=== PATIENT | female | born 1990 | race Caucasian/White ===

== ENCOUNTER 2018-01-01 21:38 | Emergency (ER) | payer MEDICAID ==
[2018-01-01] MEDS ORDERED: METAL LOCK LOOP XX (23:36)
== END 2018-01-02 00:52 | disposition left against medical advice (07) ==
LOC: M ED 01-02 00:52
DX: Z53.21 Procedure and treatment not carried out due to patient leaving prior to being seen by health care provider (principal)

== ENCOUNTER → 2019-06-30 | Outpatient (REF) | payer OTHER ==
[~2019-06-30] MED LIST: ADDE30CA3; GABA-845; LAMI1TAB7
== END ==
LOC: M LAB REF 10:51
PROVIDERS: ATTEND Ophthalmology
DX: H10.9 Unspecified conjunctivitis (principal)

== ENCOUNTER 2020-10-08 18:39 | Emergency (ER) | payer OTHER ==
[~2020-10-08] VITALS: Ht 165.1 cm; Wt 96.6 kg
[2020-10-08 19:21] LABS: BASO % 0.3 % (0.0-1.0); EOS # 0.1 10^3/uL (0.0-0.5); EOS % 1.3 % (0.0-3.0); HEMATOCRIT 43.4 % (36.0-47.0); HEMOGLOBIN 13.1 g/dl (12.0-15.5); LYMPH # 3.1 10^3/uL (1.5-5.0); LYMPH % 29.5 % (24.0-44.0); MEAN CORPUSCULAR HEMOGLOBIN 26.2 pg (27.0-33.0); MEAN CORPUSCULAR HGB CONC 30.2 g/dl (32.0-36.5); MEAN CORPUSCULAR VOLUME 86.8 fl (80.0-96.0); MONO # 0.8 10^3/uL (0.0-0.8); MONO % 7.8 % (0.0-5.0); NEUTROPHILS # 6.3 10^3/uL (1.5-8.5); NEUTROPHILS % 60.7 % (36.0-66.0); PLATELET COUNT, AUTOMATED 289 10^3/uL (150-450); WHITE BLOOD COUNT 10.4 10^3/uL (4.0-10.0)
[2020-10-08 19:55] LABS: BLOOD UREA NITROGEN 7 MG/DL (7-18); CALCIUM LEVEL 9.1 MG/DL (8.5-10.1); CARBON DIOXIDE LEVEL 33 MEQ/L (21-32); CHLORIDE LEVEL 106 MEQ/L (98-107); GLOMERULAR FILTRATION RATE > 60.0 (>60); GLUCOSE, FASTING 103 MG/DL (70-100); HCG, SERUM QUANTITATIVE 685 MIU/ML; POTASSIUM SERUM 4.1 MEQ/L (3.5-5.1); SODIUM LEVEL 142 MEQ/L (136-145)
--- NOTE | 2020-10-08 21:15 | REPVR ---
PROCEDURE INFORMATION: Exam: US First Trimester, Transabdominal and US , Transvaginal Exam date and time: 10/08/2020 8:53 PM Age: 30 years old Clinical indication: Lmp or gestational age (in weeks): 07/17/20; Antepartum complications; Bleeding; ; Additional info: Vaginal bleeding TECHNIQUE: Imaging protocol: Real-time transabdominal obstetrical ultrasound of the maternal pelvis and a first trimester , less than 14 weeks 0 days, with image documentation. Transvaginal imaging was used for better evaluation of the fetus, adnexa, and/or cervix. COMPARISON: No relevant prior studies available. FINDINGS: BIOMETRY: Mean sac diameter: What appears to be a gestational sac within the uterus measures 1.2 x 0.8 by 0.97 cm for a mean sac diameter 0.98 cm for menstrual age of 5 weeks and 5 days. Echoes are noted within the gestational sac. No definite pole. Possible yolk sac noted. Complex masslike area noted adjacent to the gestational sac within the endometrial canal measures 3.1 x 2 point 0 x 3.3 cm. No cardiac activity. MATERNAL: Uterus: Transabdominally, the uterus measures 10.9 x 4.5 by 7.1 cm. Complex fluid collection is noted within the uterus. There is suboptimal visualization of the uterus and ovaries on the transabdominal portion of the study due to incomplete bladder distension. Endovaginally, the uterus measures 9.8 x 5.5 by 6.8 cm. The endometrial stripe is thickened and heterogeneous in appearance with areas of increased and decreased echotexture noted within. No areas of abnormal vascularity noted within the endometrial canal on color Doppler examination. Cervix: Unremarkable. Right adnexa: Transabdominally, the right ovary measures 2.4 x 1.7 x 2.2 centimetres. Endovaginally, the right ovary measures 3.5 x 2.2 x 2.1 cm. Subcentimeter follicle seen in the right ovary. Arterial blood flow seen in the right ovary on pulse Doppler examination. Left adnexa: Transabdominally, the left ovary measures 3.1 x 2.4 x 2.5 cm. Endovaginally, the left ovary measures 2.4 x 3.6 x 1.9 cm and contains several subcentimeter follicles. Arterial blood flow demonstrated in the left ovary on color Doppler examination. Intraperitoneal space: No intraperitoneal free fluid. IMPRESSION: 1. Gestational sac within the uterus with estimated menstrual age 5 weeks and 5 days. Complex echoes noted within the sac and no definite pole. Serial beta hCG measurement follow-up ultrasound recommended to confirm the presence of a live . 2. Large subchorionic hemorrhage Electronically signed by: Dionne Edouard On 10/08/2020 21:15:15 PM
[2020-10-08 21:43] VITALS: BP 118/65
== END 2020-10-08 21:47 | disposition home or self-care (01) ==
LOC: M ED 18:39
DX: O20.9 Hemorrhage in early pregnancy, unspecified (principal); O36.8910 Maternal care for other specified fetal problems, first trimester, not applicable or unspecified; Z3A.10 10 weeks gestation of pregnancy; O99.331 Smoking (tobacco) complicating pregnancy, first trimester; F17.210 Nicotine dependence, cigarettes, uncomplicated; Z79.899 Other long term (current) drug therapy

== ENCOUNTER → 2020-10-10 | Outpatient (CLI) | payer OTHER | LOC: M LAB 16:17 | PROVIDERS: ATTEND Physician Assistant Medical | DX: O26.859 Spotting complicating pregnancy, unspecified trimester (principal); Z3A.00 Weeks of gestation of pregnancy not specified ==

== ENCOUNTER → 2020-10-10 | Outpatient (CLI) | payer OTHER ==
[2020-10-10 17:25] LABS: HEMATOCRIT 40.5 % (36.0-47.0); HEMOGLOBIN 12.2 g/dl (12.0-15.5); MEAN CORPUSCULAR HEMOGLOBIN 26.3 pg (27.0-33.0); MEAN CORPUSCULAR HGB CONC 30.1 g/dl (32.0-36.5); MEAN CORPUSCULAR VOLUME 87.5 fl (80.0-96.0); PLATELET COUNT, AUTOMATED 289 10^3/uL (150-450); RED BLOOD COUNT 4.63 10^6/uL (4.00-5.40); WHITE BLOOD COUNT 8.5 10^3/uL (4.0-10.0)
[2020-10-10 18:39] LABS: HEPATITIS C VIRUS ABY INDEX < 0.0 INDEX (<0.8); HIV 1&2 SCREEN CENTAUR NEGATIVE (NEGATIVE)
[2020-10-11 11:10] LABS: CHLAMYDIA DNA AMPLIFICATION NEGATIVE (NEGATIVE); GC DNA AMPLIFICATION NEGATIVE (NEGATIVE)
== END ==
LOC: M LAB 16:24
PROVIDERS: ATTEND Obstetrics & Gynecology
DX: Z34.81 Encounter for supervision of other normal pregnancy, first trimester (principal); Z3A.01 Less than 8 weeks gestation of pregnancy

== ENCOUNTER → 2020-10-11 | Outpatient (REF) | payer OTHER | LOC: M PLALAB 10:54 | PROVIDERS: ATTEND Obstetrics & Gynecology | DX: Z53.9 Procedure and treatment not carried out, unspecified reason (principal); O02.1 Missed abortion ==

== ENCOUNTER → 2021-03-12 | Outpatient (CLI) | payer OTHER | LOC: M WHC 17:28 | PROVIDERS: ATTEND Obstetrics & Gynecology | DX: Z36.89 Encounter for other specified antenatal screening (principal); Z3A.14 14 weeks gestation of pregnancy ==

== ENCOUNTER → 2021-04-09 | Outpatient (REF) | payer OTHER ==
[~2021-04-09] MED LIST changes: +GABA-283; -GABA-845
[2021-04-09 15:37] LABS: HEMATOCRIT 38.2 % (36.0-47.0); HEMOGLOBIN 12.2 g/dl (12.0-15.5); MEAN CORPUSCULAR HEMOGLOBIN 27.5 pg (27.0-33.0); MEAN CORPUSCULAR HGB CONC 31.9 g/dl (32.0-36.5); MEAN CORPUSCULAR VOLUME 86.2 fl (80.0-96.0); PLATELET COUNT, AUTOMATED 248 10^3/uL (150-450); RED BLOOD COUNT 4.43 10^6/uL (4.00-5.40)
[2021-04-09 16:46] LABS: HIV 1&2 SCREEN CENTAUR NEGATIVE (NEGATIVE)
[2021-04-09 17:16] LABS: CHLAMYDIA DNA AMPLIFICATION NEGATIVE (NEGATIVE); GC DNA AMPLIFICATION NEGATIVE (NEGATIVE)
== END ==
LOC: M PLALAB 12:34
PROVIDERS: ATTEND Obstetrics & Gynecology
DX: O99.212 Obesity complicating pregnancy, second trimester (principal); Z3A.00 Weeks of gestation of pregnancy not specified

== ENCOUNTER → 2021-04-19 | Outpatient (CLI) | payer OTHER ==
--- NOTE | 2021-04-19 14:15 | REP ---
INDICATION: ANATOMY COMPARISON: None. TECHNIQUE: Transabdominal obstetrical ultrasound with color Doppler evaluation. FINDINGS: Examination demonstrates a single live intrauterine in variable presentation. motion is identified by technologist. Placenta is noted anterior and grade 1 without evidence for placenta previa or abruption. Amniotic fluid volume is normal. Cervix measures 3.3 cm in length and appears closed.. Gestational age by current measurements 19 weeks 6 days with DAMON 09/07/2021. FHR equals 153 beats per minute. Estimated weight 314 grams (44thpercentile). Anatomical assessment demonstrates normal structures including cranium, choroid plexus, cavum, cerebellum/posterior fossa, facial features, lungs, four-chamber heart/ventricular outflow tracts, diaphragm, stomach, cord insertion/three-vessel cord, kidneys/bladder, spine, and extremities. IMPRESSION: Single live intrauterine in variable presentation demonstrating appropriate estimated weight. Anatomical assessment is complete and normal. No gross abnormalities are identified. <Electronically signed by Lane Mancilla > 04/19/21 1703
== END ==
LOC: M WHC 13:05
PROVIDERS: ATTEND Obstetrics & Gynecology
DX: Z36.9 Encounter for antenatal screening, unspecified (principal); Z3A.19 19 weeks gestation of pregnancy

== ENCOUNTER → 2021-06-25 | Outpatient (CLI) | payer OTHER ==
[~2021-06-25] MED LIST changes: +ACET-897 PO; +ADDE30TA PO; -GABA-283; +GABA-283 PO; +IBUP80TA PO; -LAMI1TAB7; +LAMI1TAB7 PO; +PERCOCET PO; +PRENTAB9 PO
[2021-06-25 14:19] LABS: HEMATOCRIT 37.5 % (36.0-47.0); HEMOGLOBIN 11.8 g/dl (12.0-15.5); MEAN CORPUSCULAR HEMOGLOBIN 26.6 pg (27.0-33.0); MEAN CORPUSCULAR HGB CONC 31.5 g/dl (32.0-36.5); MEAN CORPUSCULAR VOLUME 84.5 fl (80.0-96.0); PLATELET COUNT, AUTOMATED 261 10^3/uL (150-450); RED BLOOD COUNT 4.44 10^6/uL (4.00-5.40); WHITE BLOOD COUNT 11.7 10^3/uL (4.0-10.0)
== END ==
LOC: M PLALAB 11:56
PROVIDERS: ATTEND Obstetrics & Gynecology
DX: Z34.81 Encounter for supervision of other normal pregnancy, first trimester (principal); Z3A.00 Weeks of gestation of pregnancy not specified

== ENCOUNTER → 2021-08-15 | Outpatient (REF) | payer OTHER ==
[~2021-08-15] MED LIST changes: -ACET-897 PO; -ADDE30TA PO; +GABA-283; -GABA-283 PO; -IBUP80TA PO; +LAMI1TAB7; -LAMI1TAB7 PO; -PERCOCET PO
== END ==
LOC: M SFHCWAGY 10:37
PROVIDERS: ATTEND Obstetrics & Gynecology
DX: Z34.93 Encounter for supervision of normal pregnancy, unspecified, third trimester (principal)

== ENCOUNTER 2021-08-23 12:06 | Outpatient (CLI) | payer OTHER ==
[~2021-08-23] VITALS: Ht 165.1 cm; Wt 102.8 kg
[~2021-08-23 12:06] MED LIST changes: -GABA-283; +GABA-283 PO; -LAMI1TAB7; +LAMI1TAB7 PO
[2021-08-23 12:21] VITALS: BP 128/73
[2021-08-23] MEDS ORDERED: HOME MED LIST COMPLETE! XX SCH (12:30)
[2021-08-23] MEDS ORDERED: TERBUTALINE SULFATE 1 MG/ML VIAL (J3105) SC ONE (12:40)
[2021-08-23 13:34] VITALS: BP 122/75
[2021-08-23 14:40] VITALS: BP 116/67
[2021-08-23 15:33] VITALS: BP 123/71
--- NOTE | 2021-08-23 16:32 | IPNPDOC ---
Text Note Date of Service The patient was seen on 08/23/21. NOTE S: Pt is a 31yo at 37w4d EGA who presents for scheduled external cephalic version O: BP128/73 HR104 T97.8 FHT 130 mod +A no decel TOCO acontractile BSUS Breech, head in RUQ Procedure: Pt was consented for procedure in the office but risks, benefits, and alternatives were reviewed with the patient again. BSUS confirms position and appropriate BEAU. Terbutaline 0.25mg SC were administered prior to procedure. ECV was attempted multiple times by myself and Dr. Mock without success. FHT was monitored throughout attempted procedure and heart rate remained in the 130s-140s throughout. No evidence of distress. Patient tolerated the procedure well, however, after multiple failed attempts the decision was made to stop. Discussed with patient that she would likely need a delivery. Reviewed recovery after in detail. Patient is agreeable with this plan. A/P: Pt is a 31yo at 37w4d EGA who presents for scheduled external cephalic version - version unsuccessful - prolonged monitoring after procedure without evidence of distress - labor precautions reviewed. - kick counts reviewed Dispo: Home with follow up in the office next week. Will sign section consents at that time Saba LINDER, I+O VSSaba, I+O Vital Signs Date Time Temp Pulse Resp B/P (MAP) Pulse Ox O2 Delivery O2 Flow Rate FiO2 08/23/21 13:34 88 18 122/75 (91) 08/23/21 12:21 97.8 96 MADYSON MCLAUGHLIN MD Aug 23, 2021 16:32
[2021-08-23 16:46] VITALS: BP 120/72
== END 2021-08-23 16:56 | disposition home or self-care (01) ==
LOC: M LDO 12:06
PROVIDERS: ATTEND Obstetrics & Gynecology
DX: O32.1XX0 Maternal care for breech presentation, not applicable or unspecified (principal); Z3A.37 37 weeks gestation of pregnancy
CPT/HCPCS: 59025; 59412; 76815; J3105

== ENCOUNTER 2021-08-25 18:09 | Inpatient (IN) | payer OTHER ==
[2021-08-25] MEDS ORDERED: LACTATED RINGER'S 1000 ML IV STA (18:28)
[2021-08-25] MEDS ORDERED: LR 1,000 ML IV SCH (18:30)
[2021-08-25] MEDS ORDERED: ceFAZolin SOD 2 GM in IV 1 EA IV ONE (18:30)
[2021-08-25] MEDS ORDERED: BICITRA 30ML SOLN UDC PO ONE (18:30)
[2021-08-25] MEDS ORDERED: OXYTOCIN 30 UNITS IN 0.9% NaCl 500ML IV BAG (J2590) As Ordered ONE ×2 (18:33→19:30)
[2021-08-25] MEDS ORDERED: MORPHINE PRES-FREE INJ 10 MG/10 ML VIAL (J2274) As Ordered ONE (18:34)
[2021-08-25] MEDS ORDERED: BICITRA 30ML SOLN UDC As Ordered ONE (18:37)
[2021-08-25] MEDS ORDERED: ceFAZolin 2 GM/D5W 50 ML IV BAG (J0690 PER 500MG) As Ordered ONE (18:37)
[2021-08-25 18:42] LABS: HEMATOCRIT 35.7 % (36.0-47.0); HEMOGLOBIN 11.6 g/dl (12.0-15.5); MEAN CORPUSCULAR HEMOGLOBIN 25.1 pg (27.0-33.0); MEAN CORPUSCULAR HGB CONC 32.5 g/dl (32.0-36.5); MEAN CORPUSCULAR VOLUME 77.1 fl (80.0-96.0); PLATELET COUNT, AUTOMATED 291 10^3/uL (150-450); RED BLOOD COUNT 4.63 10^6/uL (4.00-5.40); WHITE BLOOD COUNT 13.5 10^3/uL (4.0-10.0)
[2021-08-25] MEDS ORDERED: ONDANSETRON 4MG/2ML VIAL IV PRN ×2 (18:49→19:15)
[2021-08-25] MEDS ORDERED: diphenhydrAMINE 50MG/ML VIAL (J1200) IV PRN (18:49)
[2021-08-25] MEDS ORDERED: NALOXONE INJ 0.4MG/1ML VIAL (J2310 PER 1MG) IV PRN ×2 (18:49)
[2021-08-25] MEDS ORDERED: NALBUPHINE HCL 10 MG/ML AMP (J2300) IV PRN (18:49)
[2021-08-25] MEDS ORDERED: METOCLOPRAMIDE INJ 10MG/2ML VIAL (J2765 PER 1) IV PRN (18:49)
[2021-08-25] MEDS ORDERED: dexameTHASONE 4 MG/ML 1ML VIAL (J1100 PER 1MG) As Ordered ONE (18:57)
[2021-08-25] MEDS ORDERED: ONDANSETRON 4MG/2ML VIAL As Ordered ONE (18:57)
[2021-08-25] MEDS ORDERED: PHENYLephrine 500MCG 5ML (100MCG/ML) SYRINGE As Ordered ONE (19:03)
[2021-08-25] MEDS ORDERED: ePHEDrine SULFATE 25 MG/5 ML(5MG/ML) SYRINGE As Ordered ONE (19:03)
[2021-08-25] MEDS ORDERED: KETOROLAC 60MG 2ML VIAL As Ordered ONE (19:03)
[2021-08-25] MEDS ORDERED: oxyCODONE 5MG TAB PO PRN (19:15)
[2021-08-25] MEDS ORDERED: fentaNYL 100 MCG/2 ML INJECTION (J3010) IV PRN (19:15)
[2021-08-25] MEDS ORDERED: KETOROLAC 30 MG/ML 1ML VIAL IV PRN (19:18)
[2021-08-25] MEDS ORDERED: MEASLES,MUMPS,RUBELLA VACCINE INJ (MMR-II) (90707) SC SCH (19:30)
[2021-08-25] MEDS ORDERED: RHOGAM 300 MCG (1500 IU) INJ (J2790) IM SCH (19:30)
[2021-08-25] MEDS ORDERED: OXYTOCIN DRIP 30 UNITS in IV 1 EA IV SCH (19:30)
[2021-08-25] MEDS ORDERED: SIMETHICONE 80MG CHEW TAB PO PRN (19:30)
[2021-08-25] MEDS ORDERED: MOM 30ML SUSPENSION UDC PO PRN (19:30)
[2021-08-25] MEDS ORDERED: ACET-897 PO (19:50)
[2021-08-25] MEDS ORDERED: HOME MED LIST COMPLETE! XX SCH (19:50)
[2021-08-25 20:00] LABS: CORD GAS HCO3 A 26.8 MEQ/L; CORD GAS O2 SAT A 64.1 %; CORD GAS PCO2 A 62.6 mmHg; CORD GAS PH A 7.25 UNITS; CORD GAS PO2 A 27.4 mmHg; CORD GAS TCO2 A 28.8 MEQ/L
[2021-08-25 20:01] LABS: CORD GAS ABE V -2.1; CORD GAS HCO3 V 24.4 MEQ/L; CORD GAS O2 SAT V 94.6 %; CORD GAS PCO2 V 47.7 mmHg; CORD GAS PH V 7.326 UNITS; CORD GAS PO2 V 57.7 mmHg; CORD GAS SBC V 22.7 MEQ/L; CORD GAS TCO2 V 25.8 MEQ/L
[2021-08-25] MEDS: DOCUSATE SODIUM 100MG CAPSULE PO SCH (21:00)
[2021-08-25 21:30] VITALS: BP 115/66
[2021-08-25 22:00] VITALS: BP 124/80
[2021-08-25 22:30] VITALS: BP 120/66
--- NOTE | 2021-08-25 22:56 | HPE ---
HISTORY AND PHYSICAL DATE OF ADMISSION: 08/25/2021 HISTORY OF PRESENT ILLNESS: This is a 31-year-old female, 4, para 1-0-2-1 with an estimated date of confinement (EDC) of 09/09/2021, estimated gestational age (EGA) 37 weeks gestation, who was seen and evaluated in labor and delivery for an external version two days ago, had a fell external version. She presented to labor and delivery with complaint of leakage of fluid and contractions. Upon evaluation in labor and delivery, she was found to be in active labor, grossly ruptured, with double foot in the vagina. At this point, the decision was made to proceed with delivery via primary section. Her full record reviewed. Patient has a history of bipolar disorder and attention deficit. LABORATORIES: Blood type A positive. Rubella immune. Hepatitis negative. HIV negative. Gonorrhea and chlamydia negative. One hour sugar testing was within normal limits. PAST MEDICAL HISTORY: As above. PAST SURGICAL HISTORY: Denies. SOCIAL HISTORY: Denies any alcohol or drugs. She does smoke approximately 1/2 pack of cigarettes per day. REVIEW OF SYSTEMS: Unremarkable. MEDICATIONS: - vitamins ALLERGIES: No known drug allergies. PHYSICAL EXAMINATION: GENERAL: Normal appearing female in no acute distress. ABDOMEN: Soft, nontender, nondistended. EXTREMITIES: No clubbing, cyanosis or edema. VAGINAL EXAM: As above. Double footling breach. Gross rupture of membrane. Cervix 100% effaces with dilatation about 5-6 cm dilated. TRACING: Reviewed. Category 1 tracing. ASSESSMENT: 1. Intrauterine at 37 weeks gestation in active labor with double footling breach. 2. Gross rupture of membrane. PLAN: Patient counseled extensively. She will be admitted and be taken to the operating room for delivery via section.
[2021-08-25 23:30] VITALS: BP 117/66
[2021-08-26] VITALS (7 sets, daily range): BP systolic 110–148; BP diastolic 64–89
[2021-08-26] MEDS: KETOROLAC 30 MG/ML 1ML VIAL IV SCH ×3 (01:30→13:05)
[2021-08-26 07:08] LABS: HEMATOCRIT 30.8 % (36.0-47.0); HEMOGLOBIN 9.8 g/dl (12.0-15.5); MEAN CORPUSCULAR HEMOGLOBIN 25.2 pg (27.0-33.0); MEAN CORPUSCULAR HGB CONC 31.8 g/dl (32.0-36.5); MEAN CORPUSCULAR VOLUME 79.2 fl (80.0-96.0); PLATELET COUNT, AUTOMATED 261 10^3/uL (150-450); RED BLOOD COUNT 3.89 10^6/uL (4.00-5.40); WHITE BLOOD COUNT 16.2 10^3/uL (4.0-10.0)
--- NOTE | 2021-08-26 08:04 | RO ---
OPERATIVE NOTE DATE OF OPERATION: 08/25/2021 Brissa is a 31-year-old female, 4, para 1-0-2-1, who was admitted at 37 weeks gestation with gross rupture of membranes in labor, double footling breech with feet in the vagina. After counseling, a decision was made to proceed with a low transverse primary section. PREOPERATIVE DIAGNOSIS: 1. Intrauterine , 30 weeks gestation, footling breech in labor. 2. Gross rupture of membrane. POSTOPERATIVE DIAGNOSIS: 1. Intrauterine , 30 weeks gestation, footling breech in labor. 2. Gross rupture of membrane. 3. Anterior placenta. PROCEDURE: Emergent primary low transverse section. Breech extraction. SURGEON: Geovanni Schafer DO FOOD MIXER: ANESTHESIA: Spinal COMPLICATIONS: None. ESTIMATED BLOOD LOSS: 500 mL FINDINGS: Male , double footling breech, 8-9, weight 7 lb, 12 oz. DESCRIPTION OF PROCEDURE: After obtaining informed consent, the patient was taken to the operating room where spinal anesthetic was found to be adequate. She was then draped and prepped in the usual sterile fashion in the supine position. At this point, a Pfannenstiel incision was made. This was carried down to the fascia. The fascia was incised in a midline fashion and carried through laterally. The superior aspect of the fascia was then grasped with a Heather clamp, tented off and dissected off the rectus muscles sharply. The inferior aspect was dissected off in a similar fashion. The rectus muscles were in midline fashion. The peritoneum was identified. The peritoneal cavity was entered bluntly. Superior and inferior dissection at the peritoneum was then done with good visualization of the bladder. At this point, a Mobius skin retractor was placed. was delivered via breech extraction. The nose and mouth were bulb suctioned. The cord was doubly clamped and cut and the was handed over to the awaiting warmer. Cord blood and cord gas were sent. The placenta was removed manually. The uterus was cleared of all clot and debris and the uterine incision was then repaired in two separate layers of 0 Vicryl sutures. The pelvis was copiously irrigated with normal saline and suctioned out. Attention was turned to the peritoneum which was closed in a running fashion using 2-0 Vicryl. The fascia was closed in two separate segments of 0 Vicryl sutures. All superficial bleeders were coagulated and the skin was reapproximated in a subcuticular fashion using 3-0 Vicryl on a Avel. Steri-Strips were placed. The patient tolerated the procedure well. She was then transferred to recovery room in stable condition. [facility]
[2021-08-26] MEDS: PRENATAL VITAMINS CHEWABLE TABLET PO SCH (09:00)
[2021-08-26] MEDS ORDERED: ADDE30TA PO (09:08)
[2021-08-26] MEDS: GABAPENTIN 400MG CAP PO SCH ×2 (10:45→20:34)
[2021-08-26] MEDS: DOCUSATE SODIUM 100MG CAPSULE PO SCH ×2 (10:46→20:34)
[2021-08-26] MEDS: lamoTRIgine 100MG TAB PO SCH (10:47)
[2021-08-26] MEDS: ADDERALL 5 MG TAB PO SCH ×2 (10:48→20:32)
[2021-08-26] MEDS: PERCOCET 5MG/325MG TAB PO PRN ×2 (17:47→22:05)
[2021-08-26] MEDS: IBUPROFEN 800 MG TAB PO SCH (20:37)
[2021-08-27 02:00] VITALS: BP 143/80
[2021-08-27 05:11] VITALS: BP 130/78
[2021-08-27] MEDS: PERCOCET 5MG/325MG TAB PO PRN ×2 (05:15→09:38)
[2021-08-27] MEDS: IBUPROFEN 800 MG TAB PO SCH (05:30)
[2021-08-27] MEDS: PRENATAL VITAMINS CHEWABLE TABLET PO SCH (09:00)
[2021-08-27] MEDS: ADDERALL 5 MG TAB PO SCH (09:36)
[2021-08-27] MEDS: GABAPENTIN 400MG CAP PO SCH (09:36)
[2021-08-27] MEDS: lamoTRIgine 100MG TAB PO SCH (09:36)
[2021-08-27] MEDS: DOCUSATE SODIUM 100MG CAPSULE PO SCH (09:36)
[2021-08-27] MEDS ORDERED: IBUP80TA PO (12:34)
[2021-08-27] MEDS ORDERED: PERCOCET PO (12:34)
--- NOTE | 2021-08-27 23:49 | DS.PDOC ---
Discharge Summary General Date of Admission Aug 25, 2021 at 18:28 Date of Discharge 08/27/21 Attending Physician: Geovanni Schafer DO Discharge Summary PROCEDURES PERFORMED DURING STAY: Section. ADMITTING DIAGNOSES: 1.IUP at 37 weeks gestation in active labor with double footling breech. DISCHARGE DIAGNOSES: 1. section for footling breech. COMPLICATIONS/CHIEF COMPLAINT: section for breech presentation. HISTORY OF PRESENT ILLNESS: 31 year old female, now , who presented to L & D with gross ROM and breech presentation. Her was complicated by tobacco use, bipolar disorder, and attention deficit. Due to double footling breech presentation, decision was made to proceed with section for delivery. She delivered a live male, 7# 12 oz with [facility]: Uncomplicated. DISCHARGE MEDICATIONS: Please see below. ALLERGIES: Please see below. PHYSICAL EXAMINATION ON DISCHARGE: VITAL SIGNS: Please see below. GENERAL: Alert and oriented x 3 RESPIRATORY EXAMINATION: breathing comfortably on room air, no accessory muscle use ABDOMINAL EXAMINATION: soft, nontender, fundus -2 from umbilicus, incision dressing intact, clean and dry EXTREMITIES: no edema LABORATORY DATA: Please see below. ACTIVITY: As tolerated. DIET: regular DISPOSITION: 01 Home, Self-Care. DISCHARGE INSTRUCTIONS: 1. Discharge to home 2. Reviewed incision care, pt may remove dressing on . Keep clean and dry. 3. Reviewed precautions for PPH, PP depression, DVT/PE, and infection. 4. Pelvic rest. 5. F/U at office in two weeks for incision check and 6 weeks for check. ITEMS TO FOLLOWUP ON ON OUTPATIENT: 1. . DISCHARGE CONDITION: [Stable]. TIME SPENT ON DISCHARGE: minutes. Vital Signs/I&Os Vital Signs Date Time Temp Pulse Resp B/P (MAP) Pulse Ox O2 Delivery O2 Flow Rate FiO2 08/27/21 11:28 18 08/27/21 05:11 97.9 80 130/78 (95) 08/26/21 22:05 Room Air 08/26/21 14:11 99 I&O- Last 24 Hours up to 6 AM 08/27/21 06:00 Intake Total 250 ml Output Total 800 ml Balance -550 ml Discharge Medications Scheduled Dextroamphetamine/Amphetamine (Adderall 30 mg Tablet) 30 Mg Tablet, 30 MG PO BID, (Reported) Gabapentin (Gabapentin) 400 Mg Cap, 400 MG PO BID, (Reported) 400mg PO BID and additional dose QHS prn for nerve pain Lamotrigine (Lamictal) 100 Mg Tab, 200 MG PO DAILY, (Reported) No.137/Iron/Folic Acd ( Vitamin Tablet) 1 Each Tablet, 1 TAB PO DAILY, (Reported) Scheduled PRN Acetaminophen (Tylenol Extra Strength) 500 Mg Tablet, 1,000 MG PO PRN PRN for PAIN LEVEL 1-4, (Reported) Ibuprofen (Ibuprofen) 800 Mg Tablet, 800 MG PO Q8HP PRN for PAIN LEVEL 1-6 Oxycodone/Acetaminophen (Oxycodone-Acetaminophen 5-325) 1 Each Tablet, 1 TAB PO Q6HP PRN for PAIN LEVEL 7-10 Allergies Coded Allergies: No Known Allergies (Verified , 02/17/09) ADELA BAIG CNM Aug 27, 2021 23:49
== END 2021-08-27 13:25 | disposition home or self-care (01) | DRG 540 ==
LOC: M LDO 18:09 → M LDI 18:28 → M OBS 21:00
PROVIDERS: ADMIT Obstetrics & Gynecology; ATTEND Obstetrics & Gynecology
PROC: 10D00Z1 Extraction of Products of Conception, Low, Open Approach (ICD-10-PCS; principal; 2021-08-25 19:00)
DX: O32.8XX0 Maternal care for other malpresentation of fetus, not applicable or unspecified (principal); F31.9 Bipolar disorder, unspecified; Z3A.37 37 weeks gestation of pregnancy; Z37.0 Single live birth; O99.344 Other mental disorders complicating childbirth; O99.334 Smoking (tobacco) complicating childbirth; F17.200 Nicotine dependence, unspecified, uncomplicated

== ENCOUNTER 2023-03-02 13:18 | Emergency (ER) | payer OTHER ==
[~2023-03-02] VITALS: Ht 165.1 cm; Wt 81.8 kg
[~2023-03-02 13:18] MED LIST changes: +ACET-897 PO; +ADDE30TA PO; +IBUP80TA PO; +PERCOCET PO
[2023-03-02] MEDS ORDERED: lamoTRIgine 100MG TAB PO ONE (13:55)
[2023-03-02 14:33] LABS: BASO % 0.2 % (0.0-1.0); EOS % 0.1 % (0.0-3.0); HEMATOCRIT 42.5 % (36.0-47.0); HEMOGLOBIN 13.2 g/dl (12.0-15.5); LYMPH % 10.2 % (24.0-44.0); MEAN CORPUSCULAR HEMOGLOBIN 26.6 pg (27.0-33.0); MEAN CORPUSCULAR HGB CONC 31.1 g/dl (32.0-36.5); MEAN CORPUSCULAR VOLUME 85.5 fl (80.0-96.0); MONO # 0.4 10^3/uL (0.0-0.8); MONO % 3.8 % (2.0-8.0); NEUTROPHILS # 8.4 10^3/uL (1.5-8.5); NEUTROPHILS % 85.4 % (36.0-66.0); PLATELET COUNT, AUTOMATED 288 10^3/uL (150-450); RED BLOOD COUNT 4.97 10^6/uL (4.00-5.40); WHITE BLOOD COUNT 9.8 10^3/uL (4.0-10.0)
[2023-03-02 15:01] LABS: ABG BASE EXCESS 0.7 (-2.0-2.0); ABG HCO3 25.1 MEQ/L (22.0-26.0); ABG O2 SATURATION 97.3 % (95.0-99.0); ABG PARTIAL PRESSURE CO2 39.4 mmHg (35.0-45.0); ABG PARTIAL PRESSURE O2 89.3 mmHg (75.0-100.0); ABG STANDARD HCO3 25.1 MEQ/L (22.0-26.0); ABG TOTAL CO2 26.3 MEQ/L (22.0-29.0); ABG pH (ARTERIAL) 7.422 UNITS (7.350-7.450)
[2023-03-02 15:02] LABS: ETHYL ALCOHOL (ETHANOL) < 0.003 % (0.000-0.010)
[2023-03-02 15:04] LABS: ALBUMIN 3.6 G/DL (3.2-5.2); ALKALINE PHOSPHATASE 75 U/L (46-116); ALT/SGPT < 9 U/L (7.0-40); AST/SGOT 11 U/L (<34); BILIRUBIN,DIRECT 0.2 MG/DL (<0.4); BILIRUBIN,TOTAL 0.3 MG/DL (0.3-1.2); BLOOD UREA NITROGEN 9 MG/DL (9-23); CALCIUM LEVEL 8.8 MG/DL (8.5-10.1); CARBON DIOXIDE LEVEL 27 MMOL/L (20-31); CHLORIDE LEVEL 107 MMOL/L (98-107); CREATININE FOR GFR 0.67 MG/DL (0.55-1.30); GLOMERULAR FILTRATION RATE > 60.0 (>60); GLUCOSE, FASTING 113 MG/DL (60-100); MAGNESIUM LEVEL 1.6 MG/DL (1.8-2.4); POTASSIUM SERUM 4.2 MMOL/L (3.5-5.1); SODIUM LEVEL 139 MMOL/L (136-145); TOTAL PROTEIN 6.5 G/DL (5.7-8.2)
[2023-03-02 15:18] VITALS: BP 102/72
[2023-03-02] MEDS ORDERED: MAGNESIUM OXIDE 400MG TAB (MAG-OX) PO ONE (15:20)
== END 2023-03-02 15:38 | disposition home or self-care (01) ==
LOC: M ED 13:18 → MERGE 13:18 → M ED 15:38
DX: G40.309 Generalized idiopathic epilepsy and epileptic syndromes, not intractable, without status epilepticus (principal); F17.210 Nicotine dependence, cigarettes, uncomplicated; Z79.899 Other long term (current) drug therapy

== ENCOUNTER → 2023-03-19 | Outpatient (REF) | payer OTHER ==
[2023-03-19 17:24] LABS: BASO % 0.2 % (0.0-1.0); EOS # 0.1 10^3/uL (0.0-0.5); EOS % 1.3 % (0.0-3.0); HEMATOCRIT 43.7 % (36.0-47.0); HEMOGLOBIN 13.7 g/dl (12.0-15.5); LYMPH # 2.5 10^3/uL (1.5-5.0); LYMPH % 28.8 % (24.0-44.0); MEAN CORPUSCULAR HEMOGLOBIN 27.3 pg (27.0-33.0); MEAN CORPUSCULAR HGB CONC 31.4 g/dl (32.0-36.5); MEAN CORPUSCULAR VOLUME 87.1 fl (80.0-96.0); MONO # 0.7 10^3/uL (0.0-0.8); MONO % 7.9 % (2.0-8.0); NEUTROPHILS # 5.3 10^3/uL (1.5-8.5); NEUTROPHILS % 61.6 % (36.0-66.0); PLATELET COUNT, AUTOMATED 303 10^3/uL (150-450); RED BLOOD COUNT 5.02 10^6/uL (4.00-5.40); WHITE BLOOD COUNT 8.6 10^3/uL (4.0-10.0)
[2023-03-19 17:29] LABS: ALBUMIN 3.7 G/DL (3.2-5.2); ALKALINE PHOSPHATASE 74 U/L (46-116); ALT/SGPT 16 U/L (7.0-40); AST/SGOT 11 U/L (<34); BILIRUBIN,TOTAL 0.2 MG/DL (0.3-1.2); BLOOD UREA NITROGEN 9 MG/DL (9-23); CALCIUM LEVEL 8.6 MG/DL (8.5-10.1); CARBON DIOXIDE LEVEL 28 MMOL/L (20-31); CHLORIDE LEVEL 108 MMOL/L (98-107); CHOLESTEROL LEVEL 121 MG/DL (<200); CHOLESTEROL RISK RATIO 2.84 (<5); CREATININE FOR GFR 0.64 MG/DL (0.55-1.30); GLOMERULAR FILTRATION RATE > 60.0 (>60); GLUCOSE, FASTING 106 MG/DL (60-100); HDL CHOLESTEROL 42.6 MG/DL (>40); LDL CHOLESTEROL 57.4 MG/DL (<100); NON-HDL-C 78.4 MG/DL; POTASSIUM SERUM 4.3 MMOL/L (3.5-5.1); SODIUM LEVEL 141 MMOL/L (136-145); TOTAL PROTEIN 6.8 G/DL (5.7-8.2); TRIGLYCERIDES LEVEL 105 MG/DL (<150)
[2023-03-19 17:30] LABS: THYROID STIMULATING HORMONE 0.983 uIU/ML (0.55-4.78); TOTAL 25(OH) VITAMIN D 15.5 NG/ML (20.0-100.0)
[2023-03-19 17:58] LABS: HEMOGLOBIN A1c 5.2 % (4.0-6.0)
== END ==
LOC: M LAB REF 16:08
PROVIDERS: ATTEND Nurse Practitioner Family
DX: Z13.228 Encounter for screening for other metabolic disorders (principal)

== ENCOUNTER → 2024-03-17 | Outpatient (REF) | payer OTHER ==
[~2024-03-17] MED LIST changes: -GABA-283 PO; +GABA-284 PO
[2024-03-17 18:00] LABS: BASO % 0.4 % (0.0-1.0); EOS # 0.1 10^3/uL (0.0-0.5); EOS % 1.8 % (0.0-3.0); HEMATOCRIT 43.6 % (36.0-47.0); HEMOGLOBIN 13.5 g/dl (12.0-15.5); LYMPH # 2.8 10^3/uL (1.5-5.0); LYMPH % 34.8 % (24.0-44.0); MEAN CORPUSCULAR HEMOGLOBIN 27.1 pg (27.0-33.0); MEAN CORPUSCULAR VOLUME 87.4 fl (80.0-96.0); MONO # 0.8 10^3/uL (0.0-0.8); MONO % 10.5 % (2.0-8.0); NEUTROPHILS # 4.2 10^3/uL (1.5-8.5); NEUTROPHILS % 52.2 % (36.0-66.0); PLATELET COUNT, AUTOMATED 278 10^3/uL (150-450); RED BLOOD COUNT 4.99 10^6/uL (4.00-5.40)
[2024-03-17 18:19] LABS: HEMOGLOBIN A1c 5.2 % (4.0-6.0)
[2024-03-17 18:31] LABS: ALBUMIN 3.8 G/DL (3.2-5.2); ALKALINE PHOSPHATASE 80 U/L (46-116); ALT/SGPT 10 U/L (7.0-40); AST/SGOT 18 U/L (<34); BILIRUBIN,TOTAL 0.2 MG/DL (0.3-1.2); BLOOD UREA NITROGEN 10 MG/DL (9-23); CALCIUM LEVEL 9.1 MG/DL (8.5-10.1); CARBON DIOXIDE LEVEL 29 MMOL/L (20-31); CHLORIDE LEVEL 105 MMOL/L (98-107); CHOLESTEROL LEVEL 116 MG/DL (<200); CHOLESTEROL RISK RATIO 2.59 (<5); CREATININE FOR GFR 0.66 MG/DL (0.55-1.30); GLOMERULAR FILTRATION RATE > 60.0 (>60); GLUCOSE, FASTING 86 MG/DL (60-100); HDL CHOLESTEROL 44.7 MG/DL (>40); LDL CHOLESTEROL 55.7 MG/DL (<100); MAGNESIUM LEVEL 1.8 MG/DL (1.8-2.4); NON-HDL-C 71.3 MG/DL; POTASSIUM SERUM 4.5 MMOL/L (3.5-5.1); SODIUM LEVEL 140 MMOL/L (136-145); THYROID STIMULATING HORMONE 1.622 uIU/ML (0.55-4.78); TOTAL 25(OH) VITAMIN D 19.7 NG/ML (20.0-100.0); TRIGLYCERIDES LEVEL 78 MG/DL (<150)
== END ==
LOC: M LAB REF 16:39
PROVIDERS: ATTEND Nurse Practitioner Family
DX: E55.9 Vitamin D deficiency, unspecified (principal); E66.9 Obesity, unspecified

== ENCOUNTER 2024-04-22 14:16 | Emergency (ER) | payer OTHER ==
[~2024-04-22] VITALS: Ht 165.1 cm; Wt 98.2 kg
[2024-04-22] MEDS ORDERED: LORazepam 2 MG/ML 1ML VIAL IV PRN (14:25)
[2024-04-22 14:26] VITALS: TEMP 98.7
[2024-04-22] MEDS ORDERED: VITA200032 (14:32)
[2024-04-22] MEDS: NS 1,000 ML IV ONE (14:59)
[2024-04-22 15:11] LABS: BASO % 0.3 % (0.0-1.0); EOS % 0.3 % (0.0-3.0); HEMATOCRIT 43.7 % (36.0-47.0); HEMOGLOBIN 14.2 g/dl (12.0-15.5); MEAN CORPUSCULAR HGB CONC 32.5 g/dl (32.0-36.5); MONO # 0.5 10^3/uL (0.0-0.8); MONO % 4.2 % (2.0-8.0); NEUTROPHILS # 9.6 10^3/uL (1.5-8.5); NEUTROPHILS % 85.8 % (36.0-66.0); PLATELET COUNT, AUTOMATED 286 10^3/uL (150-450); RED BLOOD COUNT 5.08 10^6/uL (4.00-5.40); WHITE BLOOD COUNT 11.2 10^3/uL (4.0-10.0)
[2024-04-22 15:12] LABS: ETHYL ALCOHOL (ETHANOL) < 0.003 % (0.000-0.010)
[2024-04-22 15:14] LABS: ALBUMIN 3.9 G/DL (3.2-5.2); ALKALINE PHOSPHATASE 86 U/L (46-116); ALT/SGPT 20 U/L (7.0-40); AST/SGOT 19 U/L (<34); BILIRUBIN,DIRECT < 0.1 MG/DL (<0.4); BILIRUBIN,TOTAL 0.3 MG/DL (0.3-1.2); BLOOD UREA NITROGEN 12 MG/DL (9-23); CALCIUM LEVEL 8.9 MG/DL (8.5-10.1); CARBON DIOXIDE LEVEL 23 MMOL/L (20-31); CHLORIDE LEVEL 106 MMOL/L (98-107); CREATININE FOR GFR 0.67 MG/DL (0.55-1.30); GLOMERULAR FILTRATION RATE > 60.0 (>60); GLUCOSE, FASTING 115 MG/DL (60-100); MAGNESIUM LEVEL 1.8 MG/DL (1.8-2.4); POTASSIUM SERUM 4.5 MMOL/L (3.5-5.1); SODIUM LEVEL 140 MMOL/L (136-145); TOTAL PROTEIN 7.1 G/DL (5.7-8.2)
[2024-04-22] MEDS: ACETAMINOPHEN 325 MG TAB PO ONE (15:41)
[2024-04-22] MEDS: KETOROLAC 30 MG/ML 1ML VIAL IV ONE (16:17)
[2024-04-22 18:07] LABS: AMPHETAMINES LEVEL URINE POSITIVE (NEGATIVE); BARBITURATES URINE NEGATIVE (NEGATIVE); BENZODIAZEPINES URINE NEGATIVE (NEGATIVE); CANNABINOIDS URINE NEGATIVE (NEGATIVE); COCAINE METABOLITE URINE NEGATIVE (NEGATIVE); METHADONE URINE NEGATIVE (NEGATIVE); OPIATES URINE NEGATIVE (NEGATIVE); PHENCYCLIDINE URINE NEGATIVE (NEGATIVE)
[2024-04-22] MEDS: levETIRAcetam INJection 1,000 MG in D5W 100 ML IV ONE (18:36)
[2024-04-22 20:00] VITALS: BP 105/56
[2024-04-22] MEDS ORDERED: KEPP1TAB2 PO (20:21)
[2024-04-22 20:30] VITALS: O2SAT 98
[2024-04-29 03:11] LABS: URINE BUPRENORPHINE See Final Results ng/mL (Cutoff=10)
== END 2024-04-22 20:44 | disposition home or self-care (01) ==
LOC: M ED 14:16
DX: G40.909 Epilepsy, unspecified, not intractable, without status epilepticus (principal); Z87.891 Personal history of nicotine dependence; Z79.1 Long term (current) use of non-steroidal anti-inflammatories (NSAID); Z79.899 Other long term (current) drug therapy
CPT/HCPCS: 36415; 70450; 72125; 80048; 80076; 80175; 80307; 82077; 83605; 83735; 84702; 85025; 93041; 94760; 96361; 96374; 96375; 99285; J1885; J1953